=== PATIENT | male | born 1965 | race Caucasian/White ===

== ENCOUNTER 2020-04-04 18:01 | Inpatient (IN) ==
[2020-04-04 19:23] LABS: Basophils # 0.1 10*3/uL (0.0-0.2); Basophils % 1.1 % (0.0-0.8); Eosinophils # 0.3 10*3/uL (0.0-0.87); Eosinophils % 2.7 % (0.00-10.9); Hematocrit 44.5 VOL% (42.0-52.0); Hemoglobin 15.3 GM/DL (14.0-18.0); Immature Granulocytes % 0.4 %; Immature Granulocytes Absolute 0.04 #; Lymphocytes # 2.8 10*3/uL (1.4-4.0); Lymphocytes % 29.4 % (21.2-54.2); Mean Corpuscular HGB Conc 34.4 GM/DL (32-36); Mean Corpuscular Volume 93.3 FL (87-102); Mean Platelet Volume 8.4 FL (9.6-12.0); Monocytes % 8.3 % (1.7-12.7); Neutrophils % 58.1 % (38.7-73.9); Platelet Count 234 T/CUMM (130-400); Red Blood Count 4.77 MC/CUMM (3.8-5.5); Red Cell Distribution Width 11.9 % (9.3-17.3); White Blood Count 9.4 T/CUMM (4-12)
[2020-04-04 19:50] LABS: Albumin 3.3 G/DL (3.4-5.0); Bilirubin,Total 0.5 MG/DL (0.2-1.0); Calcium 9.6 MG/DL (8.5-10.1); Osmolality,Calculated 268.2 MOS/KG (273-304); Total Protein 8.3 G/DL (6.4-8.3)
[2020-04-04] MEDS ORDERED: VANCOMYCIN INJ 1,000 MG in SODIUM CHLORIDE 0.9% 250 ML IV STA (20:44)
[2020-04-04] MEDS ORDERED: ONDANSETRON 4 MG/2 ML VIAL IV STA (20:44)
[2020-04-04] MEDS ORDERED: MORPHINE 4 MG/1 ML VIAL IV STA (20:44)
[2020-04-04 21:08] LABS: Band Neutrophils 1 % (0-10); Eosinophils 1 % (0-10); Lymphocytes 28 % (20-55); Segmented Neutrophils 62 % (50-85); Total Cells Counted 100
[2020-04-04 21:09] LABS: Platelet Estimate Adequate
[2020-04-04] MEDS ORDERED: DEXTROSE 50% 25 GM/50 ML VIAL IV PRN ×2 (21:19→21:33)
[2020-04-04] MEDS ORDERED: MORPHINE 4 MG/1 ML VIAL IV PRN (21:19)
[2020-04-04] MEDS ORDERED: ONDANSETRON 4 MG/2 ML VIAL IV PRN (21:19)
[2020-04-04] MEDS ORDERED: DEXTROSE 50% 25 GM/50 ML SYRINGE IV PRN (21:19)
[2020-04-04] MEDS ORDERED: GLUCAGON 1 MG VIAL IM PRN ×2 (21:19)
[2020-04-04 21:27] LABS: PT Patient Result 10.4 SECS (9.8-11.9); Partial Thromboplastin Time 29.8 SECS (23.9-33.8)
[2020-04-05 07:04] LABS: Basophils # 0.1 10*3/uL (0.0-0.2); Basophils % 1.1 % (0.0-0.8); Eosinophils # 0.2 10*3/uL (0.0-0.87); Eosinophils % 3.3 % (0.00-10.9); Hematocrit 41.9 VOL% (42.0-52.0); Hemoglobin 14.1 GM/DL (14.0-18.0); Immature Granulocytes % 0.3 %; Immature Granulocytes Absolute 0.02 #; Lymphocytes # 1.9 10*3/uL (1.4-4.0); Lymphocytes % 26.9 % (21.2-54.2); Mean Corpuscular HGB Conc 33.7 GM/DL (32-36); Mean Corpuscular Volume 93.5 FL (87-102); Mean Platelet Volume 8.8 FL (9.6-12.0); Monocytes % 9.9 % (1.7-12.7); Neutrophils % 58.5 % (38.7-73.9); Platelet Count 194 T/CUMM (130-400); Red Blood Count 4.48 MC/CUMM (3.8-5.5)
[2020-04-05 07:30] LABS: Albumin 2.9 G/DL (3.4-5.0); Bilirubin,Total 0.8 MG/DL (0.2-1.0); Calcium 9.1 MG/DL (8.5-10.1); Osmolality,Calculated 269.1 MOS/KG (273-304); Total Protein 7.6 G/DL (6.4-8.3)
[2020-04-05] MEDS ORDERED: LIDOCAINE 1% 20 ML VIAL ONE (07:51)
[2020-04-05] MEDS ORDERED: VANCOMYCIN INJ 1,500 MG in SODIUM CHLORIDE 0.9% 500 ML IV SCH (08:00)
[2020-04-05] MEDS ORDERED: MIDAZOLAM 2 MG/2 ML VIAL ONE (09:58)
[2020-04-05] MEDS ORDERED: fentaNYL 100 MCG/2 ML VIAL ONE (09:58)
[2020-04-05] MEDS ORDERED: LIDOCAINE 2% 5 ML VIAL ONE (09:58)
[2020-04-05] MEDS ORDERED: SEVOFLURANE 1 UNIT/15 MINUTE INH ONE (09:58)
[2020-04-05] MEDS ORDERED: propofoL 200 MG/20 ML VIAL IV ONE (09:58)
[2020-04-05] MEDS ORDERED: ePHEDrine 50 MG/ML VIAL ONE (09:59)
[2020-04-05] MEDS ORDERED: ONDANSETRON 4 MG/2 ML VIAL ONE (09:59)
[2020-04-05] MEDS ORDERED: GLYCOPYRROLATE 0.4 MG/2 ML VIAL ONE (09:59)
[2020-04-05] MEDS: PANTOPRAZOLE 40 MG TABLET PO SCH (10:47)
[2020-04-05] MEDS: INSULIN REGULAR 100 UNIT/ML SUBCUT SCH ×4 (10:47→21:14)
[2020-04-05] MEDS: NICOTINE 14 MG/24 HR PATCH TRANSDERM PRN (17:27)
[2020-04-05] MEDS: carvediloL 12.5 MG TABLET PO SCH (20:15)
[2020-04-05] MEDS ORDERED: CITALOPRAM 20 MG TABLET PO SCH (21:00)
[2020-04-06] MEDS: VANCOMYCIN INJ 1,250 MG in SODIUM CHLORIDE 0.9% 250 ML IV SCH ×2 (00:24→12:04)
[2020-04-06 06:09] LABS: Basophils # 0.1 10*3/uL (0.0-0.2); Eosinophils # 0.2 10*3/uL (0.0-0.87); Hematocrit 40.9 VOL% (42.0-52.0); Hemoglobin 13.8 GM/DL (14.0-18.0); Immature Granulocytes % 0.3 %; Immature Granulocytes Absolute 0.02 #; Lymphocytes # 2.8 10*3/uL (1.4-4.0); Lymphocytes % 41.2 % (21.2-54.2); Mean Corpuscular HGB Conc 33.7 GM/DL (32-36); Mean Corpuscular Volume 94.9 FL (87-102); Mean Platelet Volume 8.7 FL (9.6-12.0); Monocytes % 7.7 % (1.7-12.7); Neutrophils % 46.8 % (38.7-73.9); Platelet Count 178 T/CUMM (130-400); Red Blood Count 4.31 MC/CUMM (3.8-5.5); Red Cell Distribution Width 11.8 % (9.3-17.3); White Blood Count 6.7 T/CUMM (4-12)
[2020-04-06 06:26] LABS: Calcium 9.2 MG/DL (8.5-10.1); Osmolality,Calculated 264.4 MOS/KG (273-304)
[2020-04-06 07:45] LABS: Eosinophils 2 % (0-10); Lymphocytes 40 % (20-55); Nucleated Red Blood Cells 5 (0-5); Platelet Estimate Normal; Segmented Neutrophils 49 % (50-85); Total Cells Counted 100
[2020-04-06 07:46] LABS: Anisocytosis 1+
[2020-04-06 07:47] LABS: Hypochromasia Slight; Macrocytosis 1+
[2020-04-06] MEDS: INSULIN REGULAR 100 UNIT/ML SUBCUT SCH (08:07)
[2020-04-06] MEDS ORDERED: NICOTINE 14 MG/24 HR PATCH TRANSDERM SCH (09:00)
[2020-04-06] MEDS: PANTOPRAZOLE 40 MG TABLET PO SCH (09:49)
[2020-04-06] MEDS: hydroCHLOROthiazide 25 MG TABLET PO SCH (09:49)
[2020-04-06] MEDS: ATORVASTATIN 20 MG TABLET PO SCH (09:49)
[2020-04-06] MEDS: carvediloL 12.5 MG TABLET PO SCH ×2 (09:49→21:00)
[2020-04-06] MEDS: SODIUM HYPOCHLORITE 0.25% IRRIG 473 ML BOTTLE TOP SCH ×2 (09:49→14:37)
[2020-04-06] MEDS: CITALOPRAM 20 MG TABLET PO SCH (21:00)
[2020-04-06] MEDS: NICOTINE 14 MG/24 HR PATCH TRANSDERM PRN (21:13)
[2020-04-07] MEDS: VANCOMYCIN INJ 1,250 MG in SODIUM CHLORIDE 0.9% 250 ML IV SCH ×3 (00:16→23:21)
[2020-04-07 05:24] LABS: Basophils # 0.1 10*3/uL (0.0-0.2); Basophils % 1.4 % (0.0-0.8); Eosinophils # 0.3 10*3/uL (0.0-0.87); Eosinophils % 4.2 % (0.00-10.9); Hematocrit 42.3 VOL% (42.0-52.0); Hemoglobin 14.3 GM/DL (14.0-18.0); Immature Granulocytes % 0.2 %; Immature Granulocytes Absolute 0.01 #; Lymphocytes # 2.2 10*3/uL (1.4-4.0); Lymphocytes % 35.3 % (21.2-54.2); Mean Corpuscular HGB Conc 33.8 GM/DL (32-36); Mean Corpuscular Volume 94.6 FL (87-102); Mean Platelet Volume 8.7 FL (9.6-12.0); Monocytes % 7.9 % (1.7-12.7); Platelet Count 207 T/CUMM (130-400); Red Blood Count 4.47 MC/CUMM (3.8-5.5); Red Cell Distribution Width 11.9 % (9.3-17.3); White Blood Count 6.2 T/CUMM (4-12)
[2020-04-07 05:39] LABS: Calcium 9.4 MG/DL (8.5-10.1); Osmolality,Calculated 270.8 MOS/KG (273-304)
[2020-04-07 08:19] LABS: Eosinophils 5 % (0-10); Lymphocytes 41 % (20-55); Segmented Neutrophils 48 % (50-85); Total Cells Counted 100
[2020-04-07 08:20] LABS: Platelet Estimate Normal
[2020-04-07 08:21] LABS: Anisocytosis Slight; Macrocytosis Slight
[2020-04-07] MEDS: ATORVASTATIN 20 MG TABLET PO SCH (09:01)
[2020-04-07] MEDS: PANTOPRAZOLE 40 MG TABLET PO SCH (09:01)
[2020-04-07] MEDS: hydroCHLOROthiazide 25 MG TABLET PO SCH (09:01)
[2020-04-07] MEDS ORDERED: hydrALAZINE 20 MG/1 ML VIAL IV PRN (09:03)
[2020-04-07] MEDS: carvediloL 6.25 MG TABLET PO SCH ×2 (09:16→16:33)
[2020-04-07] MEDS: carvediloL 12.5 MG TABLET PO SCH (09:21)
[2020-04-07] MEDS: SODIUM HYPOCHLORITE 0.25% IRRIG 473 ML BOTTLE TOP SCH (10:02)
[2020-04-07] MEDS: CITALOPRAM 20 MG TABLET PO SCH (20:34)
[2020-04-08 05:37] LABS: Basophils # 0.1 10*3/uL (0.0-0.2); Basophils % 1.1 % (0.0-0.8); Eosinophils # 0.2 10*3/uL (0.0-0.87); Eosinophils % 3.6 % (0.00-10.9); Hematocrit 42.2 VOL% (42.0-52.0); Hemoglobin 14.6 GM/DL (14.0-18.0); Immature Granulocytes % 0.3 %; Immature Granulocytes Absolute 0.02 #; Lymphocytes # 2.1 10*3/uL (1.4-4.0); Lymphocytes % 33.2 % (21.2-54.2); Mean Corpuscular HGB Conc 34.6 GM/DL (32-36); Mean Corpuscular Volume 93.4 FL (87-102); Mean Platelet Volume 8.9 FL (9.6-12.0); Monocytes % 7.4 % (1.7-12.7); Neutrophils % 54.4 % (38.7-73.9); Platelet Count 220 T/CUMM (130-400); Red Blood Count 4.52 MC/CUMM (3.8-5.5); Red Cell Distribution Width 11.6 % (9.3-17.3); White Blood Count 6.2 T/CUMM (4-12)
[2020-04-08 06:02] LABS: Eosinophils 1 % (0-10); Hypochromasia 1+; Lymphocytes 37 % (20-55); Microcytosis Slight; Platelet Estimate Adequate; Segmented Neutrophils 58 % (50-85); Total Cells Counted 100
[2020-04-08 06:07] LABS: Calcium 9.7 MG/DL (8.5-10.1); Osmolality,Calculated 277.5 MOS/KG (273-304)
[2020-04-08] MEDS: PANTOPRAZOLE 40 MG TABLET PO SCH (09:07)
[2020-04-08] MEDS: carvediloL 6.25 MG TABLET PO SCH (09:07)
[2020-04-08] MEDS: hydroCHLOROthiazide 25 MG TABLET PO SCH (09:07)
[2020-04-08] MEDS: ATORVASTATIN 20 MG TABLET PO SCH (09:07)
[2020-04-08 11:45] VITALS: BP 147/83
[2020-04-08] MEDS: SODIUM HYPOCHLORITE 0.25% IRRIG 473 ML BOTTLE TOP SCH (12:52)
[2020-04-08] MEDS: VANCOMYCIN INJ 1,250 MG in SODIUM CHLORIDE 0.9% 250 ML IV SCH (14:14)
== END 2020-04-08 14:06 | disposition home health service (06) | DRG 475 ==
LOC: N.ED 18:01 → N.EDINP 21:19 → SUATTDRO 21:19 → N.3E 23:12
PROVIDERS: ADMIT Internal Medicine; ATTEND Internal Medicine

== ENCOUNTER 2020-09-15 14:48 | Observation (INO) ==
[2020-09-15] MEDS ORDERED: ONDANSETRON 4 MG/2 ML VIAL ONE (15:25)
[2020-09-15] MEDS ORDERED: ONDANSETRON 4 MG/2 ML VIAL IV STA (15:28)
[2020-09-15] MEDS ORDERED: SODIUM CHLORIDE 0.9% 1,000 ML IV STA (15:37)
[2020-09-15 15:57] LABS: Basophils # 0.1 10*3/uL (0.0-0.2); Basophils % 1.4 % (0.0-0.8); Eosinophils # 0.2 10*3/uL (0.0-0.87); Eosinophils % 2.8 % (0.00-10.9); Immature Granulocytes % 0.4 %; Immature Granulocytes Absolute 0.03 #; Lymphocytes # 1.6 10*3/uL (1.4-4.0); Lymphocytes % 19.9 % (21.2-54.2); Mean Corpuscular HGB Conc 34.1 GM/DL (32-36); Mean Corpuscular Volume 93.8 FL (87-102); Mean Platelet Volume 9.1 FL (9.6-12.0); Monocytes % 5.5 % (1.7-12.7); Platelet Count 193 T/CUMM (130-400); Red Blood Count 4.69 MC/CUMM (3.8-5.5); Red Cell Distribution Width 12.4 % (9.3-17.3); White Blood Count 8.1 T/CUMM (4-12)
[2020-09-15] MEDS ORDERED: METOCLOPRAMIDE 10 MG/2 ML VIAL ONE (15:59)
[2020-09-15] MEDS ORDERED: METOCLOPRAMIDE 10 MG/2 ML VIAL IV STA (15:59)
[2020-09-15 16:09] LABS: Albumin 3.5 G/DL (3.4-5.0); Bilirubin,Total 0.6 MG/DL (0.2-1.0); Calcium 8.6 MG/DL (8.5-10.1); Osmolality,Calculated 264.7 MOS/KG (273-304); Potassium 3.8 MMOL/L (3.5-5.1); Thyroid Stimulating Hormone 1.8 uIU/ml (0.358-3.74); Total Protein 7.7 G/DL (6.4-8.2)
[2020-09-15] MEDS ORDERED: hydrALAZINE 20 MG/1 ML VIAL IV STA (16:14)
[2020-09-15] MEDS ORDERED: DEXTROSE 50% 25 GM/50 ML VIAL IV PRN (16:59)
[2020-09-15] MEDS ORDERED: ONDANSETRON 4 MG/2 ML VIAL IV PRN (16:59)
[2020-09-15] MEDS ORDERED: GLUCAGON 1 MG VIAL IM PRN (16:59)
[2020-09-15] MEDS ORDERED: hydrALAZINE 20 MG/1 ML VIAL IV PRN (16:59)
[2020-09-15] MEDS ORDERED: MAGNESIUM SULF RIDER 4 GM in PREMIX 1 EACH IV PRN (17:10)
[2020-09-15] MEDS ORDERED: MAGNESIUM SULF RIDER 2 GM in PREMIX 1 EACH IV PRN (17:10)
[2020-09-15] MEDS ORDERED: SODIUM CHLORIDE 0.9% 1,000 ML IV SCH (17:30)
[2020-09-15] MEDS ORDERED: amLODIPine 10 MG TABLET PO ONE (17:40)
[2020-09-15 17:41] LABS: Risk Ratio 2.15; VLDL CHOLESTEROL 13.8 MG/DL
[2020-09-15] MEDS ORDERED: NICOTINE 14 MG/24 HR PATCH TRANSDERM PRN (17:54)
[2020-09-15] MEDS: ENOXAPARIN 40 MG/0.4 ML SYRINGE SUBCUT SCH (18:08)
[2020-09-15 19:02] LABS: Folate 21.8 NG/ML (5.38-24.0)
[2020-09-15] MEDS: ONDANSETRON 4 MG/2 ML VIAL IV PRN (20:44)
[2020-09-15] MEDS: ACETAMINOPHEN 325 MG TABLET PO PRN (20:48)
[2020-09-15] MEDS: INSULIN LISPRO 100 UNIT/ML SUBCUT SCH (21:21)
[2020-09-16 05:08] LABS: Basophils # 0.1 10*3/uL (0.0-0.2); Basophils % 0.7 % (0.0-0.8); Eosinophils # 0.1 10*3/uL (0.0-0.87); Eosinophils % 0.8 % (0.00-10.9); Hematocrit 40.5 VOL% (42.0-52.0); Hemoglobin 14.3 GM/DL (14.0-18.0); Immature Granulocytes % 0.4 %; Immature Granulocytes Absolute 0.03 #; Lymphocytes # 2.1 10*3/uL (1.4-4.0); Lymphocytes % 24.8 % (21.2-54.2); Mean Corpuscular HGB Conc 35.3 GM/DL (32-36); Mean Platelet Volume 9.1 FL (9.6-12.0); Monocytes % 6.6 % (1.7-12.7); Neutrophils % 66.7 % (38.7-73.9); Platelet Count 191 T/CUMM (130-400); Red Cell Distribution Width 12.4 % (9.3-17.3); White Blood Count 8.3 T/CUMM (4-12)
[2020-09-16 05:34] LABS: Bilirubin,Total 0.4 MG/DL (0.2-1.0); Calcium 8.6 MG/DL (8.5-10.1); Osmolality,Calculated 262.5 MOS/KG (273-304); Potassium 3.4 MMOL/L (3.5-5.1)
[2020-09-16 05:35] LABS: Platelet Estimate Adequate
[2020-09-16 06:16] LABS: Barbiturates Screen,Urine Negative (Negative); Benzodiazepines Screen,Urine Negative (Negative); Cannabinoid Screen,Urine Positive (Negative); Opiate Screen,Urine Negative (Negative); Phencyclidine Screen,Urine Negative (Negative)
[2020-09-16] MEDS: ONDANSETRON 4 MG/2 ML VIAL IV PRN ×2 (07:55→18:02)
[2020-09-16] MEDS: INSULIN LISPRO 100 UNIT/ML SUBCUT SCH ×4 (07:57→20:00)
[2020-09-16] MEDS: PANTOPRAZOLE 40 MG TABLET PO SCH (08:18)
[2020-09-16] MEDS: amLODIPine 10 MG TABLET PO SCH (08:18)
[2020-09-16] MEDS: CITALOPRAM 20 MG TABLET PO SCH (08:18)
[2020-09-16] MEDS: ATORVASTATIN 20 MG TABLET PO SCH (08:19)
[2020-09-16] MEDS: ASPIRIN CHEW 81 MG TABLET PO SCH (08:19)
[2020-09-16] MEDS ORDERED: POTASSIUM CHLORIDE 20 MEQ TABLET PO ONE (09:07)
[2020-09-16] MEDS: carvediloL 12.5 MG TABLET PO SCH ×2 (09:20→20:00)
[2020-09-16] MEDS: ACETAMINOPHEN 325 MG TABLET PO PRN (10:20)
[2020-09-16] MEDS: SODIUM CHLORIDE 0.9% 1,000 ML IV SCH ×2 (12:21→19:56)
[2020-09-16] MEDS: ENOXAPARIN 40 MG/0.4 ML SYRINGE SUBCUT SCH (17:11)
[2020-09-17] MEDS: SODIUM CHLORIDE 0.9% 1,000 ML IV SCH (04:08)
[2020-09-17 05:51] LABS: Basophils # 0.1 10*3/uL (0.0-0.2); Basophils % 1.1 % (0.0-0.8); Eosinophils # 0.2 10*3/uL (0.0-0.87); Eosinophils % 2.7 % (0.00-10.9); Hematocrit 40.5 VOL% (42.0-52.0); Hemoglobin 14.2 GM/DL (14.0-18.0); Immature Granulocytes % 0.6 %; Immature Granulocytes Absolute 0.04 #; Lymphocytes # 2.3 10*3/uL (1.4-4.0); Lymphocytes % 35.5 % (21.2-54.2); Mean Corpuscular HGB Conc 35.1 GM/DL (32-36); Mean Corpuscular Volume 93.5 FL (87-102); Mean Platelet Volume 9.3 FL (9.6-12.0); Monocytes % 8.7 % (1.7-12.7); Neutrophils % 51.4 % (38.7-73.9); Platelet Count 168 T/CUMM (130-400); Red Blood Count 4.33 MC/CUMM (3.8-5.5); Red Cell Distribution Width 12.5 % (9.3-17.3); White Blood Count 6.3 T/CUMM (4-12)
[2020-09-17] MEDS: INSULIN LISPRO 100 UNIT/ML SUBCUT SCH ×3 (07:46→15:35)
[2020-09-17 08:33] LABS: Calcium 8.6 MG/DL (8.5-10.1); Osmolality,Calculated 269.1 MOS/KG (273-304); Potassium 3.9 MMOL/L (3.5-5.1)
[2020-09-17] MEDS: carvediloL 12.5 MG TABLET PO SCH (08:42)
[2020-09-17] MEDS: ASPIRIN CHEW 81 MG TABLET PO SCH (08:42)
[2020-09-17] MEDS: CITALOPRAM 20 MG TABLET PO SCH (08:42)
[2020-09-17] MEDS: ATORVASTATIN 20 MG TABLET PO SCH (08:42)
[2020-09-17] MEDS: amLODIPine 10 MG TABLET PO SCH (08:42)
[2020-09-17] MEDS: PANTOPRAZOLE 40 MG TABLET PO SCH (08:42)
[2020-09-17] MEDS ORDERED: LOSARTAN 50 MG TABLET PO SCH (09:00)
[2020-09-17 16:08] VITALS: BP 144/71
== END 2020-09-17 17:00 | disposition home or self-care (01) ==
LOC: N.ED 14:48 → N.EDINP 14:48 → N.5E 18:01
PROVIDERS: ADMIT Internal Medicine; ATTEND Internal Medicine

== ENCOUNTER 2022-01-30 12:47 | Observation (INO) ==
[2022-01-30 14:56] LABS: Basophils # 0.1 10*3/uL (0.0-0.2); Basophils % 0.6 % (0.0-0.8); Eosinophils # 0.1 10*3/uL (0.0-0.87); Eosinophils % 0.4 % (0.00-10.9); Hematocrit 36.5 VOL% (42.0-52.0); Hemoglobin 12.3 GM/DL (14.0-18.0); Immature Granulocytes % 1.2 %; Immature Granulocytes Absolute 0.14 #; Lymphocytes # 1.6 10*3/uL (1.4-4.0); Lymphocytes % 14.5 % (21.2-54.2); Mean Corpuscular HGB Conc 33.7 GM/DL (32-36); Mean Corpuscular Volume 91.5 FL (87-102); Mean Platelet Volume 8.9 FL (9.6-12.0); Monocytes # 0.9 10*3/uL (0.11-0.8); Monocytes % 8.1 % (1.7-12.7); Neutrophils % 75.2 % (38.7-73.9); Platelet Count 146 T/CUMM (130-400); Red Blood Count 3.99 MC/CUMM (3.8-5.5); Red Cell Distribution Width 13.5 % (9.3-17.3); White Blood Count 11.2 T/CUMM (4-12)
[2022-01-30 15:15] LABS: Albumin 3.1 G/DL (3.4-5.0); Bilirubin,Total 0.6 MG/DL (0.20-1.00); Calcium 8.8 MG/DL (8.5-10.1); Osmolality,Calculated 262.7 MOS/KG (273-304); Potassium 3.8 MMOL/L (3.5-5.1); Total Protein 6.8 G/DL (6.4-8.2); Uric Acid 5.2 MG/DL (3.5-7.2)
[2022-01-30] MEDS ORDERED: VANCOMYCIN INJ 1,250 MG in SODIUM CHLORIDE 0.9% 250 ML IV STA (15:52)
[2022-01-30 16:08] LABS: Sedimentation Rate-Westergren 64 MM/HR (0-20)
[2022-01-30] MEDS ORDERED: ACETAMINOPHEN 325 MG TABLET PO PRN (16:42)
[2022-01-30] MEDS ORDERED: ALBUTEROL 2.5 MG/3 ML NEB RESP TX PRN (16:42)
[2022-01-30] MEDS ORDERED: GLUCAGON 1 MG VIAL IM PRN (16:42)
[2022-01-30] MEDS ORDERED: ONDANSETRON 4 MG/2 ML VIAL IV PRN (16:42)
[2022-01-30] MEDS ORDERED: DOCUSATE SODIUM 100 MG CAPSULE PO PRN (16:42)
[2022-01-30] MEDS ORDERED: hydrALAZINE 20 MG/1 ML VIAL IV PRN (16:42)
[2022-01-30] MEDS ORDERED: DEXTROSE 10% 250 ML BAG IV PRN (16:42)
[2022-01-30] MEDS: SODIUM CHLORIDE 0.9% 1,000 ML IV SCH (18:34)
[2022-01-30] MEDS: CITALOPRAM 40 MG TABLET PO SCH (21:34)
[2022-01-31] MEDS: ZALEPLON 5 MG CAPSULE PO PRN ×2 (01:00→20:37)
[2022-01-31 06:10] LABS: Basophils # 0.1 10*3/uL (0.0-0.2); Basophils % 1.1 % (0.0-0.8); Eosinophils # 0.1 10*3/uL (0.0-0.87); Hematocrit 36.4 VOL% (42.0-52.0); Hemoglobin 11.9 GM/DL (14.0-18.0); Immature Granulocytes % 0.7 %; Immature Granulocytes Absolute 0.05 #; Lymphocytes # 1.5 10*3/uL (1.4-4.0); Lymphocytes % 21.7 % (21.2-54.2); Mean Corpuscular HGB Conc 32.7 GM/DL (32-36); Mean Corpuscular Volume 93.1 FL (87-102); Mean Platelet Volume 9.4 FL (9.6-12.0); Monocytes # 0.5 10*3/uL (0.11-0.8); Monocytes % 7.6 % (1.7-12.7); Neutrophils % 66.9 % (38.7-73.9); Platelet Count 158 T/CUMM (130-400); Red Blood Count 3.91 MC/CUMM (3.8-5.5); Red Cell Distribution Width 13.7 % (9.3-17.3); White Blood Count 7.1 T/CUMM (4-12)
[2022-01-31] MEDS: SODIUM CHLORIDE 0.9% 1,000 ML IV SCH (06:34)
[2022-01-31 06:43] LABS: Calcium 9.1 MG/DL (8.5-10.1); Osmolality,Calculated 267.2 MOS/KG (273-304); Potassium 3.4 MMOL/L (3.5-5.1); Risk Ratio 3.6; Thyroid Stimulating Hormone 3.36 uIU/ml (0.358-3.74); VLDL Cholesterol 23.6 MG/DL
[2022-01-31] MEDS ORDERED: POTASSIUM CHLORIDE 20 MEQ TABLET PO ONE (07:54)
[2022-01-31] MEDS: VANCOMYCIN INJ 1,000 MG in SODIUM CHLORIDE 0.9% 250 ML IV SCH ×2 (09:14→20:36)
[2022-01-31] MEDS: PANTOPRAZOLE 40 MG TABLET PO SCH (09:15)
[2022-01-31] MEDS: PIPERACILLIN/TAZOBACTAM 3,375 MG in SODIUM CHLORIDE 0.9% 100 ML IV SCH ×2 (10:26→16:55)
[2022-01-31] MEDS: CITALOPRAM 40 MG TABLET PO SCH (20:36)
[2022-02-01] MEDS: PIPERACILLIN/TAZOBACTAM 3,375 MG in SODIUM CHLORIDE 0.9% 100 ML IV SCH ×2 (01:04→10:24)
[2022-02-01 05:10] LABS: Basophils # 0.1 10*3/uL (0.0-0.2); Basophils % 0.9 % (0.0-0.8); Eosinophils # 0.1 10*3/uL (0.0-0.87); Hematocrit 34.4 VOL% (42.0-52.0); Hemoglobin 11.4 GM/DL (14.0-18.0); Immature Granulocytes % 0.7 %; Immature Granulocytes Absolute 0.05 #; Lymphocytes # 1.5 10*3/uL (1.4-4.0); Lymphocytes % 21.4 % (21.2-54.2); Mean Corpuscular HGB Conc 33.1 GM/DL (32-36); Mean Corpuscular Volume 93.7 FL (87-102); Mean Platelet Volume 9.6 FL (9.6-12.0); Monocytes # 0.5 10*3/uL (0.11-0.8); Monocytes % 7.6 % (1.7-12.7); Neutrophils % 68.4 % (38.7-73.9); Platelet Count 164 T/CUMM (130-400); Red Blood Count 3.67 MC/CUMM (3.8-5.5); Red Cell Distribution Width 13.6 % (9.3-17.3)
[2022-02-01 05:32] LABS: Calcium 8.5 MG/DL (8.5-10.1); Osmolality,Calculated 276.5 MOS/KG (273-304); Potassium 3.7 MMOL/L (3.5-5.1)
[2022-02-01 08:15] LABS: % Iron Saturation 16.8 % (18-50)
[2022-02-01] MEDS ORDERED: ASPIRIN CHEW 81 MG TABLET PO SCH (09:00)
[2022-02-01] MEDS: VANCOMYCIN INJ 1,000 MG in SODIUM CHLORIDE 0.9% 250 ML IV SCH (09:14)
[2022-02-01] MEDS: PANTOPRAZOLE 40 MG TABLET PO SCH (09:14)
[2022-02-01] MEDS: SODIUM CHLORIDE 0.9% 1,000 ML IV SCH ×2 (09:15→10:25)
[2022-02-01] MEDS ORDERED: FERROUS SULFATE 325 MG TABLET PO SCH (11:00)
[2022-02-01 11:39] VITALS: BP 143/67
[2022-02-02 19:45] LABS: Folate 6.57 NG/ML (5.38-24.0)
== END 2022-02-01 15:22 | disposition home or self-care (01) ==
LOC: N.ED 12:47 → N.EDINP 12:47 → SUATTDRO 16:42 → N.3E 17:53
PROVIDERS: ADMIT Family Medicine; ATTEND Internal Medicine